=== PATIENT | male | born 1960 | race Caucasian/White ===

== ENCOUNTER 2017-04-06 10:03 | Emergency (ER) | payer BC ==
[2017-04-06 10:25] VITALS: BP 157/90
[2017-04-06] MEDS ORDERED: cefTRIAXone 2 GM in Sodium Chloride 0.9% 100 ML IV ONE (11:08)
[2017-04-06] MEDS ORDERED: Sodium Chloride 0.9% 10 ML Syringe FLUSH PRN (11:08)
[2017-04-06] MEDS ORDERED: Vancomycin 1 GM, Vancomycin 500 MG in Sodium Chloride 0.9% 500 ML IV ONE (12:30)
--- NOTE | 2017-04-06 13:59 | EDM.PDOC ---
ED HPI GENERAL MEDICAL PROBLEM - General Chief Complaint: Skin Complaint Stated Complaint: RASH ON FACE SENT BY [facility] Time Seen by Provider: 04/06/17 10:30 Source of Information: Reports: Patient, RN Notes Reviewed - History of Present Illness INITIAL COMMENTS - FREE TEXT/NARRATIVE: 56-year-old male started with an area of redness right upper forehead, lower anterior scalp about 6 days ago. He thought Maybe this was a spider bite but not really sure. The rash and area of erythema spread to involve the entire right for head over the next day or 2 and also moved across the midline to the left forehead. He states a day or 2 after the rash started he also had a low- grade fever in the 100.6 range. He was evaluated at [place] [facility] about 6 days ago, diagnosed with shingles and started on Valtrex. However as noted the area of swelling and erythema did cross over to the left forehead as well which now is somewhat better. Over the last day or 2 the area of erythema swelling and discomfort has moved down to the right cheek area of his face worse today than yesterday. He presented to the clinic yesterday and was started on doxycycline 100 mg twice a day. He returned to the clinic today with area of redness and swelling worsening and also now developing swelling of the right upper and lower eyelids. He therefore is referred here for further evaluation and strong consideration for IV antibiotics. He has no eye discomfort or visual difficulty. He did have fever a couple of days ago but no further fever yesterday or today. Treatments DOCTOR OF NURSE ANESTHESIA: Reports: Other (see below) Other Treatments DOCTOR OF NURSE ANESTHESIA: valtrex - Related Data Allergies Allergy/AdvReac Type Severity Reaction Status Date / Time Penicillins Allergy Other Verified 04/06/17 10:17 Home Meds: Home Meds Lisinopril/Hydrochlorothiazide [Lisinopril-Hctz 20-12.5 mg Tab] 1 tab PO DAILY 07/14/14 [History] azaTHIOprine [Imuran] 100 mg PO BID 07/14/14 [History] valACYclovir [Valtrex] 1,000 mg PO TID 04/06/17 [History] Past Medical History Cardiovascular History: Reports: Hypertension, Other (See Below) Other Cardiovascular History: coronary artery dse Gastrointestinal History: Reports: Chronic Diarrhea, Other (See Below) Other Gastrointestinal History: chrones dx Genitourinary History: Reports: Renal Calculus - Past Surgical History HEENT Surgical History: Reports: Tonsillectomy GI Surgical History: Reports: Cholecystectomy, Colonoscopy, Other (See Below) Social & Family History - Tobacco Use Smoking Status *Q: Never Smoker Second Hand Smoke Exposure: No - Caffeine Use Caffeine Use: Reports: Coffee, Soda - Alcohol Use Days Per Week of Alcohol Use: 0 - Recreational Drug Use Recreational Drug Use: No ED ROS GENERAL - Review of Systems Review Of Systems: See Below Constitutional: Reports: Fever (Low-grade intermittent), Chills HEENT: Denies: Eye Pain, Vision Change Respiratory: Denies: Shortness of Breath, Pleuritic Chest Pain Cardiovascular: Denies: Chest Pain GI/Abdominal: Denies: Abdominal Pain, Nausea, Vomiting Musculoskeletal: Reports: No Symptoms Skin: Reports: Erythema (Various areas of right forehead and right face) Neurological: Denies: Headache, Numbness, Tingling ED EXAM, SKIN/RASH Exam: See Below General Appearance: Alert, No Apparent Distress Eye Exam: Right Eye: Other (He has no conjunctival injection, cornea is clear, very minimal swelling of upper and lower eyelids), Bilateral Eye: EOMI, PERRL Nose: Normal Inspection Throat/Mouth: Normal Inspection Head: Facial Swelling (Very mild swelling areas of erythema primarily right lateral face at this time with some involvement of the right and left forehead as well) Neck: Supple, Full Range of Motion. No: Lymphadenopathy (L), Lymphadenopathy (R ) Respiratory/Chest: No Respiratory Distress, Lungs Clear, Normal Breath Sounds Cardiovascular: Regular Rate, Rhythm Neurological: Alert, Oriented, No Motor/Sensory Deficits Skin: Warm, Dry, Erythema (Large area of erythema zygomatic area of right face, to a lesser extent right forehead and left forehead) Course - Vital Signs Last Recorded V/S: Last Vital Signs Temp 97.4 F 04/06/17 10:20 Pulse 77 04/06/17 10:20 Resp 16 04/06/17 10:20 BP 157/90 H 04/06/17 10:20 Pulse Ox 98 04/06/17 10:20 - Orders/Labs/Meds Orders: Active Orders 24 hr Category Date Time Status Peripheral IV Care [RC] . DIRECTED Care 04/06/17 11:08 Active Sodium Chloride 0.9% [Saline Flush] Med 04/06/17 11:08 Active 10 ml FLUSH ASDIRECTED PRN Peripheral IV Insertion Adult [OM.PC] Stat Oth 04/06/17 11:08 Ordered Medication Orders Sodium Chloride (Saline Flush) 10 ml FLUSH ASDIRECTED PRN PRN Reason: Keep Vein Open Last Admin: 04/06/17 11:29 Dose: 10 ml Labs: Laboratory Tests 04/06/17 04/06/17 Range/Units 11:15 11:15 WBC 6.31 (4.23-9.07) K/mm3 RBC 4.70 (4.63-6.08) M/mm3 Hgb 13.4 L (13.7-17.5) gm/L Hct 40.3 (40.1-51.0) % MCV 85.7 (79.0-92.2) fl MCH 28.5 (25.7-32.2) pg MCHC 33.3 (32.2-35.5) g/dl RDW Std Deviation 46.3 H (35.1-43.9) fL Plt Count 280 (163-337) K/mm3 MPV 9.2 L (9.4-12.3) fl Neut % (Auto) 64.0 (34.0-67.9) % Lymph % (Auto) 15.5 L (21.8-53.1) % [place] % (Auto) 16.5 H (5.3-12.2) % Eos % (Auto) 2.4 (0.8-7.0) Baso % (Auto) 1.1 (0.1-1.2) % Neut # (Auto) 4.04 (1.78-5.38) K/mm3 Lymph # (Auto) 0.98 L (1.32-3.57) K/mm3 [place] # (Auto) 1.04 H (0.30-0.82) K/mm3 Eos # (Auto) 0.15 (0.04-0.54) K/mm3 Baso # (Auto) 0.07 (0.01-0.08) K/mm3 Manual Slide Review Normal smear Sodium 137 (136-145) mEq/L Potassium 4.4 (3.5-5.1) mEq/L Chloride 103 (98-107) mEq/L Carbon Dioxide 26 (21-32) mEq/L Anion Gap 12.4 (5-15) BUN 18 (7-18) mg/dL Creatinine 1.2 (0.7-1.3) mg/dL Est Cr Clr Drug Dosing 74.08 mL/min Estimated GFR (MDRD) > 60 (>60) mL/min BUN/Creatinine Ratio 15.0 (14-18) Glucose 117 H (74-106) mg/dL Calcium 9.0 (8.5-10.1) mg/dL Total Bilirubin 0.4 (0.2-1.0) mg/dL AST 31 (15-37) U/L ALT 31 (16-63) U/L Alkaline Phosphatase 70 (46-116) U/L Total Protein 7.7 (6.4-8.2) g/dl Albumin 3.5 (3.4-5.0) g/dl Globulin 4.2 gm/dL Albumin/Globulin Ratio 0.8 L (1-2) Meds: Medications Generic Name Dose Route Start Last Admin Trade Name Freq PRN Reason Stop Dose Admin Sodium Chloride 10 ml 04/06/17 11:08 04/06/17 11:29 Saline Flush FLUSH 10 ml ASDIRECTED PRN Administration Keep Vein Open Discontinued Medications Generic Name Dose Route Start Last Admin Trade Name Freq PRN Reason Stop Dose Admin Ceftriaxone Sodium 2 gm/ 100 mls @ 200 mls/hr 04/06/17 11:08 04/06/17 11:26 Sodium Chloride IV 04/06/17 11:37 200 mls/hr ONETIME ONE Administration Vancomycin HCl 1 gm/ 500 mls @ 250 mls/hr 04/06/17 12:30 04/06/17 12:29 Vancomycin HCl 500 mg/ Sodium IV 04/06/17 14:29 250 mls/hr Chloride ONETIME ONE Administration - Re-Assessments/Exams Free Text/Narrative Re-Assessment/Exam: 04/06/17 14:46 Have given Rocephin 2 g IV, vancomycin 1.5 g IV, will have him continue with the Rocephin 2 g IV daily for the next 3 days, vancomycin 1.5 g IV twice a day through this coming Sunday morning. I am back working day shift ED next Sunday so will have opportunity to reevaluate. If the cellulitis is resolving satisfactorily we'll plan to switch him over to oral antibiotics at that time. Departure - Departure Time of Disposition: 13:46 Disposition: Home, Self-Care 01 Condition: Fair Clinical Impression: Facial cellulitis - Discharge Information Referrals: Geronimo Hall MD [Primary Care Provider] - Forms: ED Department Discharge Additional Instructions: Will plan to do IV antibiotics through Sunday, Rocephin 2 g IV outpatient, vancomycin 1.5g twice daily outpatient. I will be working the emergency department Sunday. Have your nurse Sunday contact me and I will come over and see how you are doing, if improving as expected we should be able to switch you over to oral antibiotics on an outpatient basis at that time. Return Sat and Sun at 7 am and 7 pm for further antibiotics and then also Sunday at [address] Eagle will re-eval you than. - My Orders Last 24 Hours: My Active Orders 04/06/17 11:08 Peripheral IV Care [RC] . DIRECTED Sodium Chloride 0.9% [Saline Flush] 10 ml FLUSH ASDIRECTED PRN Peripheral IV Insertion Adult [OM.PC] Stat - Assessment/Plan Last 24 Hours: My Active Orders 04/06/17 11:08 Peripheral IV Care [RC] . DIRECTED Sodium Chloride 0.9% [Saline Flush] 10 ml FLUSH ASDIRECTED PRN Peripheral IV Insertion Adult [OM.PC] Stat
== END 2017-04-06 15:47 | disposition home or self-care (01) ==
LOC: JD.ED 10:03
DX: L03.211 Cellulitis of face (principal); I10 Essential (primary) hypertension; Z79.899 Other long term (current) drug therapy; Z88.0 Allergy status to penicillin
CPT/HCPCS: 36415; 80053; 85025; 96365; 96366; 96367; 99283; J0696; J3370; J7030; J7040; J7050